=== PATIENT | male | born 1970 | race African-American/Black ===

== ENCOUNTER 2017-01-05 14:58 | Emergency (ER) | payer SELFPAY ==
[~2017-01-05] VITALS: Ht 172.7 cm; Wt 73.0 kg
[2017-01-05 20:01] VITALS: BP 136/90
== END 2017-01-05 20:02 | disposition home or self-care (01) ==
LOC: ER 14:58
DX: B35.6 Tinea cruris (principal); Z88.2 Allergy status to sulfonamides; Z88.8 Allergy status to other drugs, medicaments and biological substances
CPT/HCPCS: 99283

== ENCOUNTER 2017-04-05 18:48 | Emergency (ER) | payer SELFPAY ==
[~2017-04-05] VITALS: Ht 170.2 cm; Wt 74.0 kg
[2017-04-05] MEDS ORDERED: TETANUS, DIPHTHERIA, PERTUSSIS VAC/PF 0.5ML (>7YR OLD) IM ONE (23:30)
[2017-04-05 23:41] LABS: BASOPHILS % 0.4 % (0.0-2.0); HEMATOCRIT. 42.6 % (42.0-52.0); HEMOGLOBIN. 13.8 g/dL (14.0-18.0); LYMPHOCYTES % 21.1 % (20.0-50.0); MEAN CORPUSCULAR VOLUME 83.4 fL (80.0-94.0); MEAN PLATELET VOLUME 9.3 fl (7.4-10.4); MONOCYTES % 8.1 % (2.0-8.0); NEUTROPHILS % 67.4 % (40.0-76.0); PLATELET 137 x1000/uL (130-400); RED BLOOD CELL COUNT 5.11 mill/uL (4.7-6.1); RED CELL DISTRIBUTION WIDTH 13.2 % (11.6-14.6)
[2017-04-05 23:48] LABS: CHLORIDE 106 mEq/L (98-107)
[2017-04-05 23:57] LABS: CARBON DIOXIDE 28 mEq/L (21-32); ETHANOL BLOOD < 10 mg/dL
[2017-04-06 04:46] LABS: *AMPHETAMINES SCREEN URINE NEGATIVE (NEGATIVE); *BARBITURATES SCREEN URINE NEGATIVE (NEGATIVE); *BENZODIAZEPINES SCREEN URINE NEGATIVE (NEGATIVE); *COCAINE SCREEN URINE NEGATIVE (NEGATIVE); CANNABINOID URINE SCREEN PRESUMTIVE POSITIVE (NEGATIVE); METHADONE URINE SCREEN NEGATIVE (NEGATIVE); OPIATES URINE SCREEN PRESUMTIVE POSITIVE (NEGATIVE); PHENCYCLIDINE URINE SCREEN NEGATIVE (NEGATIVE)
[2017-04-06] MEDS ORDERED: BACITRACIN ZINC OINT UDPKT TOP ONE (05:15)
[2017-04-06] MEDS ORDERED: LIDOCAINE HCL 1% 20ML VIAL (Pyxis) INJ MC ONE (05:15)
[2017-04-06 05:28] VITALS: BP 128/88
== END 2017-04-06 05:41 | disposition home or self-care (01) ==
LOC: ER 19:23
DX: S01.112A Laceration without foreign body of left eyelid and periocular area, initial encounter (principal); S80.212A Abrasion, left knee, initial encounter; S60.512A Abrasion of left hand, initial encounter; F12.10 Cannabis abuse, uncomplicated; Z88.1 Allergy status to other antibiotic agents; Z88.2 Allergy status to sulfonamides; W19.XXXA Unspecified fall, initial encounter; Y93.89 Activity, other specified; Y92.89 Other specified places as the place of occurrence of the external cause; Y99.8 Other external cause status
CPT/HCPCS: 12011; 36415; 70450; 73130; 73562; 80053; 80305; 80307; 80329; 85025; 90471; 90715; 99285; G0482; J3490; X7700; Z7610; 96372

== ENCOUNTER 2017-04-10 10:45 | Emergency (ER) | payer SELFPAY ==
[~2017-04-10] VITALS: Ht 170.2 cm; Wt 76.0 kg
[2017-04-10] MEDS ORDERED: BACITRACIN ZINC OINT UDPKT TOP ONE (14:00)
[2017-04-10 14:29] VITALS: BP 131/82
== END 2017-04-10 14:33 | disposition home or self-care (01) ==
LOC: ER 10:45
DX: Z48.02 Encounter for removal of sutures (principal); Z48.01 Encounter for change or removal of surgical wound dressing
CPT/HCPCS: 99282; X7700

== ENCOUNTER 2017-04-16 09:55 | Emergency (ER) | payer SELFPAY ==
[~2017-04-16] VITALS: Ht 170.2 cm; Wt 60.0 kg
[2017-04-16 12:38] VITALS: BP 122/84
== END 2017-04-16 12:39 | disposition home or self-care (01) ==
LOC: ER 12:35
DX: Z48.02 Encounter for removal of sutures (principal)
CPT/HCPCS: 99281; Z7610